=== PATIENT | female | born 1950 | race Caucasian/White ===

== ENCOUNTER 2018-04-20 19:30 | Inpatient (IN) | payer MEDICARE ==
[2018-04-20] MEDS ORDERED: SODIUM CHLORIDE 0.9% 1,000 ML IV STA ×2 (20:19→22:14)
--- NOTE | 2018-04-20 20:25 | ED ---
General Adult HPI - General Chief complaint: Syncope Stated complaint: syncope Time Seen by Provider: 04/20/18 20:00 Source: patient, RN notes reviewed Mode of arrival: EMS Limitations: no limitations - History of Present Illness Initial comments: 68-year-old female presents to the emergency department for a chief complaint of syncope occurring about one hour ago. Patient states she had upper back pain across her shoulders and started to feel diaphoretic so took a nitro. Patient states the pain was a 2 out of 10 at the time. Patient denies any chest pain or shortness of breath either now or when the back pain occurred. Patient states that when she took the nitro she began to feel lightheaded and lost consciousness. Patient does admit to a headache and hitting her head. Patient denies any pain anywhere else. Patient states she has nitro at home because 4 years she sometimes gets a "fizzy feeling" in her chest. Patient denies any past myocardial infarctions. Patient does state that her doctor told her she may have a "leaky valve" which is the extent of her cardiac history. Patient states she takes blood pressure medications but has no other medical history. Patient denies any urinary symptoms. Patient has no other complaints at this time including shortness of breath, chest pain, abdominal pain, nausea or vomiting, headache, or visual changes. - Related Data Home Medications Medication Instructions Recorded Confirmed Albuterol Inhaler [Ventolin 1 - 2 puff INHALATION Q6HR PRN 02/27/15 02/28/15 Inhaler] Hydrocodone/Acetaminophen 1 tab PO Q6H PRN 02/27/15 02/27/15 [Hydrocodone/Acetaminophen 7.5-300] Ibuprofen [Motrin] 200 mg PO QID 02/27/15 02/27/15 Levothyroxine Sodium [Synthroid] 125 mcg PO QAM 02/27/15 02/28/15 Olmesartan [Benicar] 20 mg PO PC-LUNCH 02/27/15 02/27/15 Allergies Allergy/AdvReac Type Severity Reaction Status Date / Time cephalexin monohydrate Allergy Rash/Hives Verified 04/20/18 23:01 [From [employer]] Review of Systems ROS Statement: Those systems with pertinent positive or pertinent negative responses have been documented in the HPI. ROS Other: All systems not noted in ROS Statement are negative. Past Medical History Past Medical History: Hypertension, Thyroid Disorder Additional Past Medical History / Comment(s): joint pain History of Any Multi-Drug Resistant Organisms: None Reported Past Surgical History: Back Surgery Past Psychological History: No Psychological Hx Reported Smoking Status: Never smoker Past Alcohol Use History: None Reported Past Drug Use History: None Reported General Exam Limitations: no limitations General appearance: alert, in no apparent distress Head exam: Present: atraumatic, normocephalic, normal inspection Eye exam: Present: normal appearance, PERRL, EOMI. Absent: scleral icterus, conjunctival injection, nystagmus, periorbital swelling ENT exam: Present: normal exam, normal oropharynx, mucous membranes moist, TM's normal bilaterally, normal external ear exam Neck exam: Present: normal inspection, full ROM. Absent: tenderness, meningismus, lymphadenopathy Respiratory exam: Present: normal lung sounds bilaterally. Absent: respiratory distress, wheezes, rales, rhonchi, stridor Cardiovascular Exam: Present: regular rate, normal rhythm, normal heart sounds. Absent: systolic murmur, diastolic murmur, rubs, gallop, clicks GI/Abdominal exam: Present: soft, normal bowel sounds. Absent: distended, tenderness, guarding, rebound, rigid Neurological exam: Present: alert, oriented X3, CN II-XII intact, other (GCS 15 , strength 5 out of 5 in upper extremities and lower extremities bilaterally, employment specialist strength 5 out of 5 bilaterally, negative arm drift) Psychiatric exam: Present: normal affect, normal mood Skin exam: Present: warm, dry, intact, normal color. Absent: rash, diaphoretic (Patient is not diaphoretic at this time) Course Vital Signs 04/20/18 04/20/18 04/20/18 19:35 20:38 21:10 Temperature 97.0 F L Pulse Rate 69 84 77 Respiratory 18 18 18 Rate Blood Pressure 83/42 79/34 82/38 O2 Sat by Pulse 90 L 100 100 Oximetry 04/20/18 04/20/18 04/20/18 22:06 22:28 23:26 Temperature Pulse Rate 71 79 75 Respiratory 18 18 18 Rate Blood Pressure 83/46 99/44 108/50 O2 Sat by Pulse 98 97 95 Oximetry Medical Decision Making - Medical Decision Making 68-year-old female presents to the emergency department for a chief complaint of syncope after taking a nitro for back pain across her shoulders bilaterally. The pain was a 2 out of 10. Patient has nitro for a 50 feeling in her heart. Patient has never had a myocardial infarction but states she may have a leaky valve. Patient did hit her head. CBC unremarkable. White count of 11.1. Hemoglobin 10.6. APTT 21. Sodium 134. No anion gap. Patient does have a creatinine of 1.5. Creatinine 2 years ago was 1.17. Cardiac panel negative. Troponin negative. Head CT shows no acute fracture or dislocation in the C- spine. No acute intracranial hemorrhage mass effect or midline shift. Chest x- ray demonstrates no acute process. Patient's blood pressure was consistently low in the emergency department. It did increase to 108/50 with 2 L of fluids and a gram of calcium. However with patient becoming syncopal and having a difficulty increasing blood pressure she will be admitted. - Lab Data Result diagrams: 04/20/18 19:42 04/20/18 19:42 Lab Results 04/20/18 04/20/18 04/20/18 Range/Units 19:42 19:42 19:42 WBC 11.1 H (3.8-10.6) k/uL RBC 3.73 L (3.80-5.40) m/uL Hgb 10.6 L (11.4-16.0) gm/dL Hct 33.7 L (34.0-46.0) % MCV 90.4 (80.0-100.0) fL MCH 28.5 (25.0-35.0) pg MCHC 31.5 (31.0-37.0) g/dL RDW 13.2 (11.5-15.5) % Plt Count 399 (150-450) k/uL Neutrophils % 72 % Lymphocytes % 19 % Monocytes % 7 % Eosinophils % 2 % Basophils % 0 % Neutrophils # 8.0 H (1.3-7.7) k/uL Lymphocytes # 2.1 (1.0-4.8) k/uL Monocytes # 0.7 (0-1.0) k/uL Eosinophils # 0.2 (0-0.7) k/uL Basophils # 0.0 (0-0.2) k/uL PT (9.0-12.0) sec INR (<1.2) APTT (22.0-30.0) sec Sodium 134 L (137-145) mmol/L Potassium 4.7 (3.5-5.1) mmol/L Chloride 103 (98-107) mmol/L Carbon Dioxide 20 L (22-30) mmol/L Anion Gap 11 mmol/L BUN 33 H (7-17) mg/dL Creatinine 1.50 H (0.52-1.04) mg/dL Est GFR (CKD-EPI)AfAm 40 (>60 ml/min/1.73 sqM) Est GFR (CKD-EPI)NonAf 35 (>60 ml/min/1.73 sqM) Glucose 127 H (74-99) mg/dL Calcium 8.7 (8.4-10.2) mg/dL Total Bilirubin 0.2 (0.2-1.3) mg/dL AST 28 (14-36) U/L ALT 25 (9-52) U/L Alkaline Phosphatase 92 (38-126) U/L Total Creatine Kinase 21 L (30-135) U/L CK-MB (CK-2) 0.5 (0.0-2.4) ng/mL CK-MB (CK-2) Rel Index 2.4 Troponin I <0.012 (0.000-0.034) ng/mL Total Protein 5.7 L (6.3-8.2) g/dL Albumin 3.5 (3.5-5.0) g/dL 04/20/18 Range/Units 19:42 WBC (3.8-10.6) k/uL RBC (3.80-5.40) m/uL Hgb (11.4-16.0) gm/dL Hct (34.0-46.0) % MCV (80.0-100.0) fL MCH (25.0-35.0) pg MCHC (31.0-37.0) g/dL RDW (11.5-15.5) % Plt Count (150-450) k/uL Neutrophils % % Lymphocytes % % Monocytes % % Eosinophils % % Basophils % % Neutrophils # (1.3-7.7) k/uL Lymphocytes # (1.0-4.8) k/uL Monocytes # (0-1.0) k/uL Eosinophils # (0-0.7) k/uL Basophils # (0-0.2) k/uL PT 10.0 (9.0-12.0) sec INR 1.0 (<1.2) APTT 21.1 L (22.0-30.0) sec Sodium (137-145) mmol/L Potassium (3.5-5.1) mmol/L Chloride (98-107) mmol/L Carbon Dioxide (22-30) mmol/L Anion Gap mmol/L BUN (7-17) mg/dL Creatinine (0.52-1.04) mg/dL Est GFR (CKD-EPI)AfAm (>60 ml/min/1.73 sqM) Est GFR (CKD-EPI)NonAf (>60 ml/min/1.73 sqM) Glucose (74-99) mg/dL Calcium (8.4-10.2) mg/dL Total Bilirubin (0.2-1.3) mg/dL AST (14-36) U/L ALT (9-52) U/L Alkaline Phosphatase (38-126) U/L Total Creatine Kinase (30-135) U/L CK-MB (CK-2) (0.0-2.4) ng/mL CK-MB (CK-2) Rel Index Troponin I (0.000-0.034) ng/mL Total Protein (6.3-8.2) g/dL Albumin (3.5-5.0) g/dL Disposition Clinical Impression: Syncope, Hypotension, Head injury Disposition: ADMITTED IP TO THIS HOSP Condition: Good Is patient prescribed a controlled substance at d/c from ED?: No Referrals: Charlie Lilly MD [Primary Care Provider] - 1-2 days Time of Disposition: 00:10
[2018-04-20 20:45] LABS: Basophils % (A) 0 %; Eosinophils # (A) 0.2 k/uL (0-0.7); Eosinophils % (A) 2 %; HCT 33.7 % (34.0-46.0); HGB 10.6 gm/dL (11.4-16.0); Lymphocytes # (A) 2.1 k/uL (1.0-4.8); Lymphocytes % (A) 19 %; MCH 28.5 pg (25.0-35.0); MCHC 31.5 g/dL (31.0-37.0); MCV 90.4 fL (80.0-100.0); Mean Platelet Volume 7.6; Monocytes # (A) 0.7 k/uL (0-1.0); Monocytes % (A) 7 %; Neutrophils % (A) 72 %; Platelet Count 399 k/uL (150-450); RBC 3.73 m/uL (3.80-5.40); RDW 13.2 % (11.5-15.5); WBC 11.1 k/uL (3.8-10.6)
[2018-04-20 20:55] LABS: Albumin 3.5 g/dL (3.5-5.0); Calcium 8.7 mg/dL (8.4-10.2); Potassium 4.7 mmol/L (3.5-5.1); Total Bilirubin 0.2 mg/dL (0.2-1.3); Total Protein 5.7 g/dL (6.3-8.2)
[2018-04-20 21:06] LABS: Creatine Kinase 21 U/L (30-135)
[2018-04-20 21:20] LABS: Creatine Kinase MB 0.5 ng/mL (0.0-2.4); Troponin I <0.012 ng/mL (0.000-0.034)
[2018-04-20 21:27] LABS: Partial Thromboplastin Time 21.1 sec (22.0-30.0)
--- NOTE | 2018-04-20 22:04 | XR ---
EXAMINATION: XR chest 2V DATE AND TIME: 04/20/2018 8:56 PM ORDERING PROVIDER: Uvaldo Brooks CLINICAL INDICATION: syncope TECHNIQUE: AP and lateral COMPARISON: None. DESCRIPTION: The lungs are clear. The pleural spaces are negative. The cardiac silhouette is mildly enlarged. The mediastinal and pleural silhouettes are unremarkable. The skeletal structures are intact without acute findings. The soft tissues are unremarkable. IMPRESSION: NO ACUTE PROCESS.
--- NOTE | 2018-04-20 22:09 | CT ---
EXAMINATION TYPE: CT brain fredi wright con DATE OF EXAM: 04/20/2018 COMPARISON: 04/15/2010 HISTORY: syncopal episode today, fall CT DLP: [id number] mGycm Automated exposure control for dose reduction was used. TECHNIQUE: CT scan of the head and cervical spine are performed without contrast. FINDINGS: There is no acute intracranial hemorrhage, mass effect, or midline shift identified. The ventricles and sulci are within normal limits in size. The globes are intact and the visualized sin uses are clear. Cervical spine is visualized in its entirety from C1 through upper thoracic levels and demonstrates s atisfactory alignment without evidence of acute fracture or dislocation. Prevertebral soft tissue ap pears within normal limits. The C1-C2 articulation is unremarkable. IMPRESSION: 1. There is no acute fracture or dislocation evident in the cervical spine. 2. No acute intracranial hemorrhage, mass effect, or midline shift is seen.
[2018-04-20] MEDS ORDERED: CALCIUM CHLORIDE 100 MG/ML 10 ML SYRINGE IVP STA (22:15)
[2018-04-21] MEDS ORDERED: NALOXONE 0.4 MG/ML 1 ML VIAL IV PRN (00:10)
[2018-04-21 02:22] LABS: Creatine Kinase <20 U/L (30-135)
[2018-04-21] MEDS: SODIUM CHLORIDE 0.9% 1,000 ML IV SCH ×2 (02:34→18:37)
[2018-04-21 02:35] LABS: Creatine Kinase MB 0.7 ng/mL (0.0-2.4); Troponin I <0.012 ng/mL (0.000-0.034)
[2018-04-21 02:54] LABS: Appearance,Urine Clear (Clear); Bilirubin,Urine Negative (Negative); Blood,Urine Negative (Negative); Color,Urine Light Yellow; Glucose,Urine (UA) Negative (Negative); Ketones,Urine Negative (Negative); Leukocyte Esterase,Urine Negative (Negative); Nitrite,Urine Negative (Negative); Protein,Urine Negative (Negative); Specific Gravity,Urine 1.007 (1.001-1.035); Urobilinogen,Urine <2.0 mg/dL (<2.0)
--- NOTE | 2018-04-21 08:14 | P.CRDCN ---
History of Present Illness Consult date: 04/21/18 Chief complaint: Syncopal episode History of present illness: This is a pleasant 68-year-old female patient who sees Dr. Wu in the office as an outpatient with a past medical history significant for hypertension and recently diagnosed as was valvular heart disease with unknown details at this point, presented to the hospital after she lost her consciousness at home. The patient was in her usual state of health until yesterday when she was standing in the bathroom and started experiencing discomfort in the back of her neck. She took nitroglycerin and subsequently she lost her consciousness where she was found laying on the floor by her son. She felt dizzy and lightheaded before that happened to her. No chest pain or chest discomfort and no shortness of breath. The patient was brought to the emergency room where she was found to be hypotensive with a systolic blood pressure in the 80s. Currently she has been maintaining normal blood pressure. The patient was receiving as an outpatient oral nitrate and also she was receiving Benicar. The EKG showed sinus rhythm without any significant ST or T-wave abnormalities. She was ruled out for acute coronary event. The chest x-ray did not show any acute abnormalities which she underwent a computed tomography scan of the head and neck and that did not reveal any acute abnormalities as well. I am in process of obtaining orthostatic blood pressure on the patient. She stated that she underwent a stress test and echocardiogram as an outpatient about 6 months ago and I will obtain a copy of those. The patient expressed the wishes that she would like to be discharged home. Past Medical History Past Medical History: Hypertension, Thyroid Disorder Additional Past Medical History / Comment(s): joint pain History of Any Multi-Drug Resistant Organisms: None Reported Past Surgical History: Back Surgery Past Psychological History: No Psychological Hx Reported Smoking Status: Never smoker Past Alcohol Use History: None Reported Past Drug Use History: None Reported Medications and Allergies Home Medications Medication Instructions Recorded Confirmed Type Albuterol Inhaler [Ventolin 1 - 2 puff INHALATION RT-Q6H PRN 02/27/15 04/21/18 History Inhaler] Levothyroxine Sodium [Synthroid] 125 mcg PO QAM 02/27/15 04/21/18 History Olmesartan [Benicar] 20 mg PO DAILY 02/27/15 04/21/18 History Celecoxib [CeleBREX] 200 mg PO BID-W/MEALS 04/21/18 04/21/18 History Cyclobenzaprine [Flexeril] 10 mg PO DAILY PRN 04/21/18 04/21/18 History Hydrocodone/Acetaminophen [[place] 1 tab PO DAILY PRN 04/21/18 04/21/18 History 5-325] Isosorbide Mononitrate ER [Imdur] 30 mg PO DAILY 04/21/18 04/21/18 History Nitroglycerin Sl Tabs [Nitrostat] 0.4 mg SUBLINGUAL Q5M PRN 04/21/18 04/21/18 History Nitroglycerin [Nitroglycerin 1 spray TRANSLINGU Q5M PRN 04/21/18 04/21/18 History 400MCG [place]] Omeprazole 20 mg PO DAILY 04/21/18 04/21/18 History Zantac Unknown Dose 0.5 tab PO DAILY PRN 04/21/18 04/21/18 History Allergies Allergy/AdvReac Type Severity Reaction Status Date / Time cephalexin monohydrate Allergy Rash/Hives Verified 04/21/18 07:36 [From [employer]] Physical Exam Vitals: Vital Signs Temp Pulse Resp BP Pulse Ox 04/21/18 07:20 87 16 117/55 97 04/21/18 02:34 77 16 117/56 94 L 04/20/18 23:26 75 18 108/50 95 04/20/18 22:28 79 18 99/44 97 04/20/18 22:06 71 18 83/46 98 04/20/18 21:10 77 18 82/38 100 04/20/18 20:38 84 18 79/34 100 04/20/18 19:35 97.0 F L 69 18 83/42 90 L Intake and Output 04/20/18 04/21/18 04/21/18 22:59 06:59 14:59 Other: Weight 102.965 kg - Constitutional General appearance: no acute distress - Respiratory Respiratory: bilateral: CTA - Cardiovascular Rhythm: regular Heart sounds: normal: S1, S2 Abnormal Heart Sounds: systolic murmur Results 04/20/18 19:42 04/20/18 19:42 Cardiac Enzymes 04/20/18 04/20/18 04/21/18 Range/Units 19:42 19:42 01:33 AST 28 (14-36) U/L CK-MB (CK-2) 0.5 0.7 (0.0-2.4) ng/mL Troponin I <0.012 <0.012 (0.000-0.034) ng/mL Coagulation 04/20/18 Range/Units 19:42 PT 10.0 (9.0-12.0) sec APTT 21.1 L (22.0-30.0) sec CBC 04/20/18 Range/Units 19:42 WBC 11.1 H (3.8-10.6) k/uL RBC 3.73 L (3.80-5.40) m/uL Hgb 10.6 L (11.4-16.0) gm/dL Hct 33.7 L (34.0-46.0) % Plt Count 399 (150-450) k/uL Comprehensive Metabolic Panel 04/20/18 Range/Units 19:42 Sodium 134 L (137-145) mmol/L Potassium 4.7 (3.5-5.1) mmol/L Chloride 103 (98-107) mmol/L Carbon Dioxide 20 L (22-30) mmol/L BUN 33 H (7-17) mg/dL Creatinine 1.50 H (0.52-1.04) mg/dL Glucose 127 H (74-99) mg/dL Calcium 8.7 (8.4-10.2) mg/dL AST 28 (14-36) U/L ALT 25 (9-52) U/L Alkaline Phosphatase 92 (38-126) U/L Total Protein 5.7 L (6.3-8.2) g/dL Albumin 3.5 (3.5-5.0) g/dL Current Medications Generic Name Dose Route Start Last Admin Trade Name Freq PRN Reason Stop Dose Admin Sodium Chloride 1,000 mls @ 75 mls/hr 04/21/18 00:15 04/21/18 02:34 Saline 0.9% IV 75 mls/hr .[id number] NAREN Administration Naloxone HCl 0.2 mg 04/21/18 00:10 Narcan IV Q2M PRN Opioid Reversal Intake and Output 04/20/18 04/21/18 04/21/18 22:59 06:59 14:59 Other: Weight 102.965 kg 04/20/18 19:42 04/20/18 19:42 Assessment and Plan Assessment: Assessment #1 syncopal episode likely related to orthostatic hypotension with a differential diagnosis of vasovagal syncope #2 hypotension which has improved Plan #1 the patient was ruled out for acute coronary event #2 I am in process of obtaining orthostatic hypotension #3 obtain her previous medical records from the office #4 probably discharge home later on today.
[2018-04-21 09:51] LABS: Creatine Kinase 24 U/L (30-135)
[2018-04-21 10:03] LABS: Creatine Kinase MB 0.8 ng/mL (0.0-2.4); Troponin I <0.012 ng/mL (0.000-0.034)
[2018-04-21] MEDS ORDERED: NITROGLYCERIN SL TABS 0.4 MG TAB SUBLINGUAL PRN (12:10)
[2018-04-21] MEDS ORDERED: HYDROcodone/APAP 5-325MG 1 EACH TAB PO PRN (12:10)
[2018-04-21] MEDS ORDERED: FAMOTIDINE 20 MG TAB PO PRN (12:10)
[2018-04-21] MEDS ORDERED: CYCLOBENZAPRINE 10 MG TAB PO PRN (12:10)
[2018-04-21] MEDS ORDERED: NON-FORMULARY DRUG (Olmesartan 20 MG) PO SCH (12:15)
[2018-04-21] MEDS: ISOSORBIDE MONONITRATE ER 30 MG TAB.ER.24H PO SCH (12:41)
[2018-04-21] MEDS: PANTOPRAZOLE 40 MG TABLET PO SCH (12:41)
[2018-04-21] MEDS: LEVOTHYROXINE 125 MCG TAB PO SCH (12:41)
[2018-04-21] MEDS: LACTATED RINGERS 1,000 ML IV SCH ×2 (14:05→23:17)
[2018-04-21] MEDS: SODIUM BICARBONATE TAB 650 MG TAB PO SCH ×2 (19:20→23:17)
[2018-04-21] MEDS: ENOXAPARIN 40 MG/0.4 ML SYRINGE SQ SCH (19:20)
--- NOTE | 2018-04-21 19:25 | HP ---
HISTORY AND PHYSICAL DATE OF ADMISSION: 04/21/2018. DATE OF SERVICE: 04/21/2018 PRESENTING COMPLAINT: Passed out. HISTORY OF PRESENTING COMPLAINT: This is a very pleasant 68-year-old patient of Dr. Lilly. The patient's chronic stable medical conditions include asthma, GERD, hypertension, primary osteoarthritis, hypothyroid, chronic low back pain. Also has bilateral varicose veins which are stable. The patient has been feeling a bit tired. The patient had an episode where she felt a bit sweaty, some discomfort in the back. She decided to take nitroglycerin spray and then she passed out. There was no precordial pain, no palpitation. There was no tongue biting or incontinence. No focal weakness. The patient when presented, the blood pressure was 83/42 and a pulse of 69, pulse ox 98% on room air. The patient's troponin was negative. The patient has been feeling very tired and run down. The patient's BUN and creatinine was elevated at 33 and 1.5. REVIEW OF SYSTEMS: CONSTITUTIONAL: Tired. HEENT: None. RESPIRATORY: None. CARDIOVASCULAR: None. GASTROINTESTINAL: None. GENITOURINARY: None. MUSCULOSKELETAL: Some low back pain. DERMATOLOGICAL: None. HEMATOLOGIC: None. LYMPHATIC: None. PSYCHIATRY: None. NEUROLOGICAL: Nil focal. PAST MEDICAL HISTORY: Asthma GERD, hypertension, osteoarthritis, hypothyroid, chronic low back pain, spondylosis, bilateral varicose veins. PAST SURGICAL HISTORY: Tonsillectomy, back surgery x2, bilateral cataract with lens implant. SOCIAL HISTORY: Lives with her . No smoking. No alcohol. FAMILY HISTORY: Myocardial infarction. HOME MEDICATIONS: 1. Nitroglycerin 1 spray q.5 p.r.n. 2. [place] 5 one tablet p.o. daily p.r.n. 3. Zantac. 4. Omeprazole 20 mg p.o. daily. 5. Benicar 20 mg p.o. daily. 6. Nitrostat 0.4 sublingual q.5 p.r.n. 7. Synthroid 125 mcg p.o. daily. 8. Imdur ER 30 mg a day. 9. Flexeril 10 mg p.o. daily p.r.n. 10.Celebrex 200 mg p.o. b.i.d. 11.Ventolin 1-2 puffs every 6 hours p.r.n. ALLERGIES: KEFLEX. EXAMINATION: VITAL SIGNS: On presentation, temperature 97.9, pulse 69, respirations 18, blood pressure 83/42, pulse ox 98% on room air. GENERAL APPEARANCE: Well-built, BMI 40.2, lying in bed, tired-appearing. EYES: Pupils equal. Conjunctivae normal. HEENT: External appearance of nose and ears normal. Oral cavity normal. NECK: JVD not raised. Mass not palpable. RESPIRATORY: Effort normal. Lungs are clear. CARDIOVASCULAR: First and second sounds normal. No edema. ABDOMEN: Soft, nontender. Liver and spleen not palpable. LYMPHATIC: No lymph node palpable in neck or axillae. PSYCHIATRY: Alert and oriented x3. Mood and affect normal. NEUROLOGICAL: Pupils equal. Cranial nerves grossly intact. Power and sensation grossly intact. INVESTIGATIONS: White count 11.1, hemoglobin 10.6. Potassium 4.9, BUN 33, creatinine 1.50. Troponin x3 negative. UA negative. EKG shows sinus rhythm. EKG tracing interpreted by me shows sinus rhythm. Chest x-ray AP film: Poor expiration. ASSESSMENT: 1. The patient had an episode of passing out associated with hypotension, probably from hypotension from volume loss from in setting of renal failure. The patient is put on Benicar and Celebrex. It could be a prerenal component. 2. Hypotension in a patient on antihypertensive. 3. Intermittent asthma, controlled. 4. Gastroesophageal reflux disease. 5. Primary osteoarthritis. 6. Hypothyroid. 7. Bilateral varicose veins; chronic, stable. PLAN: Will send off a renal ultrasound. I will start the patient's Benicar and Celebrex, start the patient on IV fluids. Oral bicarb will be also added. Repeat electrolytes in the morning. Care was discussed with the patient. Lovenox for DVT prophylaxis. Cardiology was consulted because of syncope. MMODL / IJN: [id number] /
--- NOTE | 2018-04-21 19:37 | US ---
EXAMINATION TYPE: US renals and bladder DATE OF EXAM: 04/21/2018 COMPARISON: NONE CLINICAL HISTORY: renal failure. Renal failure exam limitations due to body habitus. EXAM MEASUREMENTS: Right Kidney: 10.9 x 4.6 x 4.5 cm Left Kidney: 9.7 x 4.1 x 3.7 cm Exam limited due to body habitus. Right Kidney: No hydronephrosis or masses seen cortical thinning. Left Kidney: No hydronephrosis or masses seen cortical thinning. Bladder: Anechoic Bilateral Jets seen: Yes IMPRESSION: No renal mass or obstruction. Mild renal cortical atrophy.
[2018-04-21 23:08] VITALS: RESP 16
[2018-04-22] MEDS: LEVOTHYROXINE 125 MCG TAB PO SCH (06:03)
[2018-04-22] MEDS: PANTOPRAZOLE 40 MG TABLET PO SCH (07:45)
[2018-04-22] MEDS: ENOXAPARIN 40 MG/0.4 ML SYRINGE SQ SCH (07:45)
[2018-04-22] MEDS: ISOSORBIDE MONONITRATE ER 30 MG TAB.ER.24H PO SCH (07:45)
[2018-04-22] MEDS: LACTATED RINGERS 1,000 ML IV SCH (07:46)
[2018-04-22] MEDS: SODIUM BICARBONATE TAB 650 MG TAB PO SCH ×2 (07:47→15:19)
[2018-04-22 07:57] LABS: Calcium 9.1 mg/dL (8.4-10.2); Potassium 4.7 mmol/L (3.5-5.1)
--- NOTE | 2018-04-22 11:07 | P.PN ---
Subjective Progress Note Date: 04/22/18 Principal diagnosis: syncope This is a pleasant 68-year-old female patient who sees Dr. Wu in the office as an outpatient with past medical history significant for hypertension and recently diagnosed as was valvular heart disease with unknown details at this point, presented to the hospital after she lost her consciousness at home. The patient was in her usual state of health until yesterday when she was standing in the bathroom and started experiencing discomfort in the back of her neck. She took nitroglycerin and subsequently she lost her consciousness where she was found laying on the floor by her son. She felt dizzy and lightheaded before that happened to her. No chest pain or chest discomfort and no shortness of breath. The patient was brought to the emergency room where she was found to be hypotensive with a systolic blood pressure in the 80s. Currently she has been maintaining normal blood pressure. The patient was receiving as an outpatient oral nitrate and also she was receiving Benicar. The EKG showed sinus rhythm without any significant ST or T-wave abnormalities. She was ruled out for acute coronary event. The chest x-ray did not show any acute abnormalities which she underwent a computed tomography scan of the head and neck and that did not reveal any acute abnormalities as well. Objective - Vital Signs Vital signs: Vital Signs Temp 98.0 F 04/22/18 05:00 Pulse 68 04/22/18 05:00 Resp 16 04/22/18 05:00 BP 137/64 04/22/18 05:00 Pulse Ox 97 04/22/18 05:00 Intake & Output 04/21/18 04/22/18 04/22/18 18:59 06:59 18:59 Intake Total 1760 Balance 1760 Weight 102.965 kg Intake: Intake, IV Titration 1100 Amount Lactated Ringers 1,000 ml 1100 @ 100 mls/hr IV .Q10H NAREN Rx#:[id number] Oral 660 Other: Voiding Method Toilet Toilet # Voids 1 - Constitutional General appearance: Present: no acute distress - Respiratory Respiratory: bilateral: CTA - Cardiovascular Rhythm: regular Heart sounds: normal: S1, S2 - Labs CBC & Chem 7: 04/20/18 19:42 04/22/18 06:53 Labs: Abnormal Lab Results - Last 24 Hours (Table) 04/22/18 Range/Units 06:53 Chloride 110 H (98-107) mmol/L Assessment and Plan Assessment: Assessment #1 syncopal episode likely related to orthostatic hypotension with a differential diagnosis of vasovagal syncope #2 hypotension which has improved Plan #1 the patient was ruled out for acute coronary event #2 orthostatic blood pressure was performed and came in to be unremarkable #3 the patient underwent a stress test about a year ago and that was unremarkable as well #4 the primary care team thinks that her syncope is likely related to dehydration and currently she is receiving IV fluid #5 if the patient continues to be asymptomatic from a cardiac O standpoint of view, she probably can be discharged home and have a stenosis as an outpatient
[2018-04-22 15:26] VITALS: BP 117/56; PULSE 80; TEMP 97.6
--- NOTE | 2018-04-22 23:17 | DS ---
DISCHARGE SUMMARY DATE OF ADMISSION: 04/21/2018. DATE OF DISCHARGE: 04/22/2018 FINAL DIAGNOSES: 1. Acute renal failure, prerenal and possibly interstitial nephritis from medications, including Celebrex and Cozaar. 2. Syncope due to hypotension. 3. Hypotension due to volume depletion. 4. Intermittent asthma, controlled. 5. Gastroesophageal reflux disease. 6. Primary osteoarthritis. 7. Hypothyroid. 8. Bilateral varicose veins, chronic. HOSPITAL COURSE: This patient presented with an episode of passing out. The patient was found to be hypotensive in the 80s when she arrived. The patient's BUN/creatinine was 33/1.50. I discontinued patient's Celebrex and Cozaar. By the time of discharge, BUN and creatinine had come down to 15/0.91. Renal ultrasound showed minimal cortical thinning. The patient was seen by Dr. Bhardwaj from Cardiology. No further intervention at the present time. Today patient is up and about. Care was discussed in detail. I also discussed with Dr. Bhardwaj this morning and with the patient. Questions were answered. I did explain to the patient I am cutting back the dose of Celebrex, stopping the Cozaar and she needs to have electrolytes checked as an outpatient and keep an eye on her blood pressure. EXAMINATION: Temperature 97.6, pulse 80, respirations 16, blood pressure 111/56, pulse ox 96% on room air. Blood pressure 107/56, pulse ox 96% on room air. LUNGS: Clear. CARDIOVASCULAR: First and second sounds normal. DISCHARGE MEDICATIONS: 1. Albuterol 1-2 puffs every 6 hours p.r.n. 2. Synthroid 125 mcg p.o. daily. 3. Flexeril 10 mg p.o. daily p.r.n. 4. Wallis 5 one tablet p.o. daily p.r.n. 5. Imdur ER 30 mg a day. 6. Nitrostat 0.4 sublingual q.5 p.r.n. 7. Nitroglycerin spray. 8. Omeprazole 20 mg p.o. daily. 9. Zantac as before. 10.Celebrex 100 mg p.o. b.i.d., new dose. 11.Discontinued Benicar. FOLLOWUP: Follow up with Dr. Lilly on 04/30/2018. Follow up with Cardiology. Patient to have a BMP checked in a week's time. DISCUSSION AND DISCHARGE PLANNING: More than 35 minutes. CONSULTATIONS: To Dr. Bhardwaj. JUSTUS / LELEN: [id number] /
== END 2018-04-22 18:00 | disposition home or self-care (01) | DRG 684 ==
LOC: EC 19:30 → 3OBS 04-21 00:33 → OBSVTOIN 04-21 00:33 → 6SEL 04-21 11:36 → 5MS5E 04-21 15:38
PROVIDERS: ADMIT Hospitalist; ATTEND Hospitalist
DX: N17.9 Acute kidney failure, unspecified (principal); N12 Tubulo-interstitial nephritis, not specified as acute or chronic; S09.90XA Unspecified injury of head, initial encounter; E86.9 Volume depletion, unspecified; I95.1 Orthostatic hypotension; T39.395A Adverse effect of other nonsteroidal anti-inflammatory drugs [NSAID], initial encounter; T46.5X5A Adverse effect of other antihypertensive drugs, initial encounter; I10 Essential (primary) hypertension; J45.20 Mild intermittent asthma, uncomplicated; K21.9 Gastro-esophageal reflux disease without esophagitis; M19.91 Primary osteoarthritis, unspecified site; E03.9 Hypothyroidism, unspecified; I83.93 Asymptomatic varicose veins of bilateral lower extremities; G89.29 Other chronic pain; M54.5 Low back pain; Z79.1 Long term (current) use of non-steroidal anti-inflammatories (NSAID); Z79.890 Hormone replacement therapy; Z79.899 Other long term (current) drug therapy; Z98.42 Cataract extraction status, left eye; Z98.41 Cataract extraction status, right eye; Z96.1 Presence of intraocular lens; Z88.1 Allergy status to other antibiotic agents; M47.9 Spondylosis, unspecified; Z82.49 Family history of ischemic heart disease and other diseases of the circulatory system
CPT/HCPCS: 36415; 70450; 71046; 72125; 76770; 80048; 80053; 81003; 82550; 82553; 84484; 85025; 85610; 85730; 93005; 96361; 96374; 99285

== ENCOUNTER → 2019-01-15 | Outpatient (CLI) | payer MEDICARE ==
--- NOTE | 2019-01-17 07:48 | PE ---
EXAMINATION TYPE: PET CT fusion skull to thigh DATE OF EXAM: 01/15/2019 COMPARISON: Outside chest CT December 16, 2018. HISTORY: Abnormal CT. Solitary pulmonary nodule. TECHNIQUE: Following the intravenous administration of 14.04 mCi of F-18 FDG, whole body images are performed from the skull base to the midthigh. Images are reviewed on the computer in the coronal, a xial, and sagittal planes. Reconstructed rotating images are created on independent workstation and reviewed on the computer. A noncontrast CT is performed in conjunction with the PET scan. SCAN: Initial Scan FINDINGS: SKULL BASE AND NECK: No areas of suspicious hypermetabolic uptake. CHEST, MEDIASTINUM, AND HILAR REGION: There is persistent focal groundglass opacity or Groundglass no dule superior right lower lobe measuring 1.3 x 1.1 cm axial image 89 that is ametabolic. No areas of abnormal hypermetabolic uptake in the thorax are present. ABDOMEN AND PELVIS: No areas of abnormal hypermetabolic uptake are identified. OSSEOUS STRUCTURES: No areas of abnormal hypermetabolic uptake. OTHER CT: Air-fluid level left maxillary sinus is present. Correlate for acute sinusitis. Enlarged main pulmonary artery measuring 3.2 cm the bifurcation image 86, CT findings suggesting unde rlying pulmonary artery hypertension, correlate clinically. Some cortical thinning in both kidneys, left greater than right is present products of chronic medica l renal disease. Diverticula throughout the left and sigmoid colon are redemonstrated. Surgical change lower lumbar spine is seen. IMPRESSION: No suspicious hypermetabolic uptake in the 1.3 cm superior right lower lobe groundglass n odule or nodular consolidation. Slow-growing neoplasm such as bronchioloalveolar carcinoma is not ent irely excluded. Advise contrast enhanced CT follow-up in 6 months time to reassess.
== END | disposition home or self-care (01) ==
LOC: RADPETMAIN 12:24
PROVIDERS: ATTEND Family Medicine
DX: R91.8 Other nonspecific abnormal finding of lung field (principal)
CPT/HCPCS: 78815; A9552

== ENCOUNTER → 2019-07-27 | Outpatient (CLI) | payer MEDICARE ==
--- NOTE | 2019-07-27 13:51 | CT ---
EXAMINATION TYPE: CT chest wo con DATE OF EXAM: 07/27/2019 COMPARISON: CT chest 12/16/2018, nuclear medicine PET/CT 01/15/2019 HISTORY: Follow up lung nodule CT DLP: 561.8 mGycm. Automated Exposure Control for Dose Reduction was Utilized. TECHNIQUE: CT scan of the thorax is performed without IV contrast. FINDINGS: Active contrast could compromise sensitivity. There is a small hiatal hernia present. LUNGS: The lungs are grossly clear, there is no change in the groundglass nodule present in the super ior segment of the right lower lobe. There is no pleural effusion or pneumothorax seen. The trache obronchial tree is patent. MEDIASTINUM: Lack of IV contrast is noted to limit evaluation for mediastinal and especially hilar ad enopathy. There are no definitive greater than 1 cm hilar or mediastinal lymph nodes. No cardiomega ly or pericardial effusion is seen. OTHER: Pneumobilia is present which is developed in the interval, calcification is present in what ma y be a contracted gallbladder or possibly cystic duct remnant with a focus of air as on prior immedia tely adjacent. IMPRESSION: Stable right lower lobe groundglass nodule. Interval development of pneumobilia, correlat e for any history of instrumentation. Noncontrast exam.
== END | disposition home or self-care (01) ==
LOC: RADCTMAIN 13:13
PROVIDERS: ATTEND Internal Medicine Critical Care Medicine
DX: R91.1 Solitary pulmonary nodule (principal); Z88.2 Allergy status to sulfonamides; Z88.8 Allergy status to other drugs, medicaments and biological substances; Z88.5 Allergy status to narcotic agent
CPT/HCPCS: 71250

== ENCOUNTER → 2020-07-24 | Outpatient (CLI) | payer MEDICARE ==
--- NOTE | 2020-07-24 12:50 | CT ---
EXAMINATION TYPE: CT chest wo con DATE OF EXAM: 07/24/2020 COMPARISON: 07/27/2019 HISTORY: 70-year-old female R91.1 Lung nodule TECHNIQUE: Contiguous axial scanning of the chest without IV contrast. Coronal and sagittal reconstru ctions performed. CT DLP: 521.70 mGycm Automated exposure control for dose reduction was used. FINDINGS: Heart borderline in size without pericardial effusion. Aorta normal caliber with conventional arch vessel branching anatomy. No thoracic lymphadenopathy by CT size criteria. 1.6 cm groundglass opacity posterior right midlung, unchanged. Strandy areas of scarring or atelectasis at the lung bases. No consolidation or pleural effusion. Tiny hiatal hernia. Visualized upper abdomen shows mild diverticular change of the splenic flexure of the colon. Gallbladder surgically absent. Bones: Accentuated mid thoracic process. DISH within the mid and lower thoracic spine. IMPRESSION: STABLE 1.6 CM GROUNDGLASS OPACITY POSTERIOR RIGHT MIDLUNG. RECOMMEND ONGOING ANNUAL SURVEILLANCE. IF THIS REPRESENTS AN AREA OF ADENOMATOUS HYPERPLASIA, IT COULD SERVE A PRECURSOR TO LUNG CANCER IN T HE FUTURE.
== END | disposition home or self-care (01) ==
LOC: RADCTMAIN 11:07
PROVIDERS: ATTEND Internal Medicine Critical Care Medicine
DX: R91.8 Other nonspecific abnormal finding of lung field (principal)
CPT/HCPCS: 71250

== ENCOUNTER → 2020-08-23 | Outpatient (CLI) | payer MEDICARE ==
--- NOTE | 2020-08-27 11:14 | MM ---
Reason for exam: screening (asymptomatic). Last mammogram was performed 11 years and 11 months ago. History: Patient is postmenopausal and had first child at age 30. Benign excisional biopsy of the right breast. Took estrogen for 6 years beginning at age 51. Took progesterone for 6 years beginning at age 51. Physical Findings: A clinical breast exam by your physician is recommended on an annual basis and results should be correlated with mammographic findings. MG 3D Screening Mammo W/Cad Bilateral CC and MLO view(s) were taken. Prior study comparison: September 21, 2008, bilateral digital screening mammogram. September 02, 2007, bilateral screening mammogram w/CAD. There are scattered fibroglandular densities. No significant changes when compared with prior studies. ASSESSMENT: Benign, BI-RAD 2 RECOMMENDATION: Routine screening mammogram of both breasts in 1 year.
== END | disposition home or self-care (01) ==
LOC: RADMAMWWP 10:13
PROVIDERS: ATTEND Family Medicine
DX: Z12.31 Encounter for screening mammogram for malignant neoplasm of breast (principal)
CPT/HCPCS: 77063; 77067

== ENCOUNTER → 2020-09-06 | Outpatient (CLI) | payer MEDICARE ==
--- NOTE | 2020-09-10 09:04 | BD ---
EXAMINATION TYPE: Axial Bone Density DATE OF EXAM: 09/06/2020 COMPARISON: 03/22/2004 report. CLINICAL HISTORY: Postmenopausal female. Height: 60 IN Weight: 229 LBS FRAX RISK QUESTIONS: History of Fracture in Adulthood: FOOT FX AGE 58 RISK FACTORS HISTORY OF: Active: YES Postmenopausal woman: AGE 48 Take estrogen and/or progesterone medications: NOT NOW TOOK FOR 1 YEAR MEDICATIONS: Thyroid Medications: YES Which medication: Synthroid How Lon YEARS Additional Medications: SYNTHROID, PAIN MEDS, BLOOD PRESSURE MEDS,KIDNEY MEDS EXAM MEASUREMENTS: Bone mineral densitometry was performed using the [employer] System. L-SPINE SURGERY AGE 44 Bone mineral density about the R hip (g/cm2): 0.776 Bone mineral density about the L hip (g/cm2): 0.873 T Score values are as follows: -----R Neck: -1.9 -----L Neck: -1.2 -----R Total: -1.3 -----L Total: -1.0 Bone mineral density has: Decreased -19.8% since study of: 03/22/2004 Bone mineral density about the L Wrist (g/cm2): 0.528 T Score values are as follows: -----Dist. R+U: -3.0 -----Prox. R+U: -1.0 -----Radius total: -2.4 Bone mineral density BASELINE IMPRESSION: Osteopenia (T Score between -2.5 and -1). There is slightly increased risk of fracture and the patient may be considered for treatment. Re-Screen 2-5 years. NOTE: T-SCORE=SD OF THE YOUNG ADULT MEAN.
== END | disposition home or self-care (01) ==
LOC: RADBDWWP 10:45
PROVIDERS: ATTEND Family Medicine
DX: M85.80 Other specified disorders of bone density and structure, unspecified site (principal); Z78.0 Asymptomatic menopausal state
CPT/HCPCS: 77080

== ENCOUNTER → 2021-06-26 | Outpatient (CLI) | payer MEDICARE ==
--- NOTE | 2021-06-26 13:26 | CT ---
EXAMINATION TYPE: CT chest wo con DATE OF EXAM: 06/26/2021 COMPARISON: CT chest 07/24/2020 HISTORY: lung nodule CT DLP: 689.9 mGycm. Automated Exposure Control for Dose Reduction was Utilized. TECHNIQUE: CT scan of the thorax is performed without IV contrast. FINDINGS: Lack of intravenous contrast could compromise sensitivity. LUNGS: The lungs are stable, there is no change in the groundglass nodule seen in the superior segmen t right lower lobe. There is no pleural effusion or pneumothorax seen. The tracheobronchial tree i s patent. MEDIASTINUM: Lack of IV contrast is noted to limit evaluation for mediastinal and especially hilar ad enopathy. There are no definitive greater than 1 cm hilar or mediastinal lymph nodes. No cardiomega ly or pericardial effusion is seen. OTHER: Diverticular changes associated with the colon. Aorta shows normal caliber.. IMPRESSION: Stable nodule
== END | disposition home or self-care (01) ==
LOC: RADCTMAIN 11:58
PROVIDERS: ATTEND Internal Medicine Critical Care Medicine
DX: R91.1 Solitary pulmonary nodule (principal)
CPT/HCPCS: 71250

== ENCOUNTER → 2022-03-26 | Outpatient (CLI) | payer MEDICARE ==
--- NOTE | 2022-03-26 10:29 | US ---
EXAMINATION TYPE: US kidneys/renal and bladder DATE OF EXAM: 03/26/2022 COMPARISON: US 2018 CLINICAL HISTORY: N18.31 STAGE 3 KIDNEY DISEASE,N25.81HYPERPARATHYRO. Stage 3 CKD. EXAM MEASUREMENTS: Right Kidney: 11.3 x 5.8 x 4.3 cm Left Kidney: 10.3 x 5.5 x 4.5 cm Right Kidney: Cortex appears thin. Left Kidney: Cortex appears thin. Prominent pyramids. Bladder: Limited, not fully distended. Appears anechoic. Bilateral Jets seen: Limited, jet is seen, unable to determine if right or left with certainty. Cortical thinning bilaterally is present. Bladder not greatly distended. Bilateral distal ureter jets not seen. IMPRESSION: Evidence of chronic medical renal disease. No hydronephrosis seen bilaterally.
--- NOTE | 2022-03-26 15:17 | NM ---
EXAMINATION TYPE: NM parathyroid w/spect DATE OF EXAM: 03/26/2022 COMPARISON: NONE HISTORY: N25.81 hyperparathyroidism TECHNIQUE: Following administration of 25.9 mCi Tc99m Sestamibi. Anterior projection images of the neck and ches t were obtained 10 minutes and 3 hours post injection. SPECT images of the neck and chest were obtai mary and reconstructed in three axes. FINDINGS: Thyroid tracer washout: Delayed images demonstrate near-complete tracer washout from the thyroid. Parathyroid uptake: None. The two-hour delayed images do not demonstrate any focal abnormal persisten t uptake in the region of the parathyroid glands to suggest parathyroid adenoma. Normal uptake: There is physiological tracer uptake in the myocardium, liver, salivary glands, and th yroid gland. IMPRESSION: Normal parathyroid imaging study. No evidence for mediastinal uptake to suggest mediastinal parathyro id adenoma
== END | disposition home or self-care (01) ==
LOC: RADUSWWP 09:37
PROVIDERS: ATTEND Internal Medicine Nephrology
DX: N25.81 Secondary hyperparathyroidism of renal origin (principal); N18.31 Chronic kidney disease, stage 3a
CPT/HCPCS: 76770; 78071; A9500

== ENCOUNTER 2022-12-18 15:01 | Emergency (ER) | payer MEDICARE ==
[2022-12-18 15:06] VITALS: RESP 16
--- NOTE | 2022-12-18 15:12 | ED ---
Neuro HPI - General Chief Complaint: Neuro Symptoms/Deficit Stated Complaint: Stroke Time Seen by Provider: 12/18/22 15:03 Source: patient Mode of arrival: EMS - History of Present Illness Is the patient presenting with stroke symptoms?: Yes Initial Comments: 72-year-old female with past medical history of asthma, hypertension who presents to the emergency department altered. EMS states that the patient was found at the grocery store in her car. She was not acting right. They noted that she had hemiparesis of her left side. No numbness the patient's last known well. Patient arrives and she is able to answer some questions. She has significant dysarthria. She reports that she went to the grocery store around 1:30. Cannot delineate any further when the patient began having symptoms. She does have complete paralysis of her left upper and left lower extremity. There is also weakness of the right lower extremity. She has no previous history of stroke and states she is not on a blood thinner. Remainder of HPI is limited - Related Data Home Medications: Home Medications Medication Instructions Recorded Confirmed Albuterol Inhaler [Ventolin Hfa 1 - 2 puff INHALATION RT-Q6H PRN 02/27/15 12/18/22 Inhaler] Levothyroxine Sodium [Synthroid] 125 mcg PO DAILY 02/27/15 12/18/22 Isosorbide Mononitrate ER [Imdur] 30 mg PO DAILY 04/21/18 12/18/22 Nitroglycerin [Nitroglycerin 1 spr TRANSLINGU Q5M PRN 04/21/18 12/18/22 400MCG [place]] EPINEPHrine (Auto Inject) [Epipen] 0.3 mg IM ONCE PRN 12/18/22 12/18/22 Ergocalciferol [Vitamin D2 (1250 1,250 mcg PO Q14D 12/18/22 12/18/22 Mcg = 65700 Iu)] HYDROcodone/APAP 7.5-325MG [[place] 1 tab PO TID PRN 12/18/22 12/18/22 7.5-325] Magnesium Oxide [Mag-Ox] 400 mg PO Q2D 12/18/22 12/18/22 Olmesartan [Benicar] 5 mg PO DAILY 12/18/22 12/18/22 calcitrioL [Calcitriol] 0.25 mcg PO MOFR 12/18/22 12/18/22 Allergies/Adverse Reactions: Allergies Allergy/AdvReac Type Severity Reaction Status Date / Time cephalexin monohydrate Allergy Rash/Hives Verified 12/18/22 15:16 [From Keflex] levofloxacin [From Levaquin] Allergy Unknown Verified 12/18/22 15:16 Review of Systems ROS Statement: Those systems with pertinent positive or pertinent negative responses have been documented in the HPI. ROS Other: All systems not noted in ROS Statement are negative. General Exam Limitations: altered mental status, physical limitation General appearance: lethargic Eye exam: Present: other (4 mm bilaterally and reactive) ENT exam: Present: normal exam, mucous membranes moist Neck exam: Present: normal inspection. Absent: tenderness, meningismus, lymphadenopathy Respiratory exam: Present: normal lung sounds bilaterally. Absent: respiratory distress, wheezes, rales, rhonchi, stridor Cardiovascular Exam: Present: regular rate, normal rhythm, normal heart sounds. Absent: systolic murmur, diastolic murmur, rubs, gallop, clicks Neurological exam: Present: other (Patient is alert and oriented 3. She has significant dysarthria. Complete caridad-neglect of her left side. Paralyzed left upper and lower extremity. Has significant weakness right lower extremity. Left-sided facial droop) Psychiatric exam: Present: flat affect Skin exam: Present: warm, dry, intact, normal color. Absent: rash Stroke MDM - Lab Data Result diagrams: 12/18/22 15:17 12/18/22 15:17 Lab Results 12/18/22 12/18/22 12/18/22 Range/Units 15:17 15:17 15:17 WBC 8.4 (3.8-10.6) k/uL RBC 3.96 (3.80-5.40) m/uL Hgb 12.0 (11.4-16.0) gm/dL Hct 36.3 (34.0-46.0) % MCV 91.7 (80.0-100.0) fL MCH 30.3 (25.0-35.0) pg MCHC 33.0 (31.0-37.0) g/dL RDW 12.9 (11.5-15.5) % Plt Count 268 (150-450) k/uL MPV 10.2 Neutrophils % 46 % Lymphocytes % 43 % Monocytes % 6 % Eosinophils % 2 % Basophils % 0 % Neutrophils # 3.9 (1.3-7.7) k/uL Lymphocytes # 3.6 (1.0-4.8) k/uL Monocytes # 0.5 (0-1.0) k/uL Eosinophils # 0.2 (0-0.7) k/uL Basophils # 0.0 (0-0.2) k/uL PT 10.4 (9.0-12.0) sec INR 1.0 (<1.2) APTT 22.5 (22.0-30.0) sec Sample Site ABG pH (7.35-7.45) ABG pCO2 (35-45) mmHg ABG pO2 (83-108) mmHg ABG HCO3 (21-25) mmol/L ABG Total CO2 (19-24) mmol/L ABG O2 Saturation (94-97) % ABG Base Excess mmol/L Ivan Test FiO2 % Sodium 137 (137-145) mmol/L Potassium 4.0 (3.5-5.1) mmol/L Chloride 106 (98-107) mmol/L Carbon Dioxide 23 (22-30) mmol/L Anion Gap 8 mmol/L BUN 15 (7-17) mg/dL Creatinine 0.87 (0.52-1.04) mg/dL Est GFR (CKD-EPI)AfAm 76 (>60 ml/min/1.73 sqM) Est GFR (CKD-EPI)NonAf 66 (>60 ml/min/1.73 sqM) Glucose 137 H (74-99) mg/dL POC Glucose (mg/dL) (70-110) mg/dL POC Glu Certified Optician ID Calcium 8.9 (8.4-10.2) mg/dL Total Bilirubin 0.4 (0.2-1.3) mg/dL AST 35 (14-36) U/L ALT 13 (4-34) U/L Alkaline Phosphatase 104 (38-126) U/L Creatine Kinase (30-135) U/L Troponin I (0.000-0.034) ng/mL Total Protein 6.1 L (6.3-8.2) g/dL Albumin 3.7 (3.5-5.0) g/dL 04/06/23 04/06/23 04/06/23 Range/Units 15:17 15:17 15:31 WBC (3.8-10.6) k/uL RBC (3.80-5.40) m/uL Hgb (11.4-16.0) gm/dL Hct (34.0-46.0) % MCV (80.0-100.0) fL MCH (25.0-35.0) pg MCHC (31.0-37.0) g/dL RDW (11.5-15.5) % Plt Count (150-450) k/uL MPV Neutrophils % % Lymphocytes % % Monocytes % % Eosinophils % % Basophils % % Neutrophils # (1.3-7.7) k/uL Lymphocytes # (1.0-4.8) k/uL Monocytes # (0-1.0) k/uL Eosinophils # (0-0.7) k/uL Basophils # (0-0.2) k/uL PT (9.0-12.0) sec INR (<1.2) APTT (22.0-30.0) sec Sample Site ABG pH (7.35-7.45) ABG pCO2 (35-45) mmHg ABG pO2 (83-108) mmHg ABG HCO3 (21-25) mmol/L ABG Total CO2 (19-24) mmol/L ABG O2 Saturation (94-97) % ABG Base Excess mmol/L Ivan Test FiO2 % Sodium (137-145) mmol/L Potassium (3.5-5.1) mmol/L Chloride (98-107) mmol/L Carbon Dioxide (22-30) mmol/L Anion Gap mmol/L BUN (7-17) mg/dL Creatinine (0.52-1.04) mg/dL Est GFR (CKD-EPI)AfAm (>60 ml/min/1.73 sqM) Est GFR (CKD-EPI)NonAf (>60 ml/min/1.73 sqM) Glucose (74-99) mg/dL POC Glucose (mg/dL) 132 H (70-110) mg/dL POC Glu Certified Optician ID Destini Rios Calcium (8.4-10.2) mg/dL Total Bilirubin (0.2-1.3) mg/dL AST (14-36) U/L ALT (4-34) U/L Alkaline Phosphatase (38-126) U/L Creatine Kinase 39 (30-135) U/L Troponin I <0.012 (0.000-0.034) ng/mL Total Protein (6.3-8.2) g/dL Albumin (3.5-5.0) g/dL 12/18/22 Range/Units 16:00 WBC (3.8-10.6) k/uL RBC (3.80-5.40) m/uL Hgb (11.4-16.0) gm/dL Hct (34.0-46.0) % MCV (80.0-100.0) fL MCH (25.0-35.0) pg MCHC (31.0-37.0) g/dL RDW (11.5-15.5) % Plt Count (150-450) k/uL MPV Neutrophils % % Lymphocytes % % Monocytes % % Eosinophils % % Basophils % % Neutrophils # (1.3-7.7) k/uL Lymphocytes # (1.0-4.8) k/uL Monocytes # (0-1.0) k/uL Eosinophils # (0-0.7) k/uL Basophils # (0-0.2) k/uL PT (9.0-12.0) sec INR (<1.2) APTT (22.0-30.0) sec Sample Site lrad ABG pH 7.38 (7.35-7.45) ABG pCO2 41 (35-45) mmHg ABG pO2 375 H (83-108) mmHg ABG HCO3 24 (21-25) mmol/L ABG Total CO2 25 H (19-24) mmol/L ABG O2 Saturation 100.0 H (94-97) % ABG Base Excess -1.0 mmol/L Ivan Test Yes FiO2 100 % Sodium (137-145) mmol/L Potassium (3.5-5.1) mmol/L Chloride (98-107) mmol/L Carbon Dioxide (22-30) mmol/L Anion Gap mmol/L BUN (7-17) mg/dL Creatinine (0.52-1.04) mg/dL Est GFR (CKD-EPI)AfAm (>60 ml/min/1.73 sqM) Est GFR (CKD-EPI)NonAf (>60 ml/min/1.73 sqM) Glucose (74-99) mg/dL POC Glucose (mg/dL) (70-110) mg/dL POC Glu Certified Optician ID Calcium (8.4-10.2) mg/dL Total Bilirubin (0.2-1.3) mg/dL AST (14-36) U/L ALT (4-34) U/L Alkaline Phosphatase (38-126) U/L Creatine Kinase (30-135) U/L Troponin I (0.000-0.034) ng/mL Total Protein (6.3-8.2) g/dL Albumin (3.5-5.0) g/dL - Medical Decision Making Was pt. sent in by a medical professional or institution (, CHRISTOPH, WEB DESIGN INTERN, urgent care, hospital, or correction...) When possible be specific @ -No Did you speak to anyone other than the patient for history (EMS, parent, family, police, friend...)? What history was obtained from this source @ -EMS described the history of the patient and scene details Did you review nursing and triage notes (agree or disagree)? Why? @ -I reviewed and agree with nursing and triage notes Were old charts reviewed (outside hosp., previous admission, EMS record, old EKG, old radiological studies, urgent care reports/EKG's, correction records)? Report findings @ -No Differential Diagnosis (chest pain, altered mental status, abdominal pain women, abdominal pain men, vaginal bleeding, weakness, fever, dyspnea, syncope, headache, dizziness, GI bleed, back pain, seizure, CVA, palpatations, mental health, musculoskeletal)? @ -ischemic cva, hemorrhagic cva, brain mass, sdh, sah EKG interpreted by me (3pts min.). @ -yes X-rays interpreted by me (1pt min.). @ -yes CT interpreted by me (1pt min.). @ -yes U/S interpreted by me (1pt. min.). @ -None done What testing was considered but not performed or refused? (CT, X-rays, U/S, labs)? Why? @ -None What meds were considered but not given or refused? Why? @ -None Did you discuss the management of the patient with other professionals (professionals i.e. Dr., PA, WEB DESIGN INTERN, lab, RT, psych nurse, social insurance analyst, manufacturing production manager, teacher, chief media officer, case packer and sealer)? Give summary @ -Dr. Cooley and Dr. Espana - spoke to both as to whether mannitol could be given and to what hospital the patient should be transported to Was smoking cessation discussed for >3mins.? @ -No Was critical care preformed (if so, how long)? @ -Yes, 65 minutes Were there social determinants of health that impacted care today? How? (Homelessness, low income, unemployed, alcoholism, drug addiction, transportation, low edu. Level, literacy, decrease access to med. care, care home, rehab)? @ -No Was there de-escalation of care discussed even if they declined (Discuss DNR or withdrawal of care, Hospice)? DNR status @ -Yes. Discussed with patient and she wanted to be a full code What co-morbidities impacted this encounter? (DM, HTN, Smoking, COPD, CAD, Cancer, CVA, ARF, Chemo, Hep., AIDS, mental health diagnosis, sleep apnea, morbid obesity)? @ -None Was patient admitted / discharged? Hospital course, mention meds given and route, prescriptions, significant lab abnormalities, going to OR and other pertinent info. @ - Upon arrival patient is placed in the hallway. Neuro assessment is performed. She is able to answer questions appropriately however has sign ificant dysarthria. She has complete caridad-neglect of her left side with hemiparesis. She is protecting her airway at this time and is taken over to CT. I am able to visualize a very large intracranial bleed. We do proceed with CT angios to evaluate for aneurysm rupture. Patient is placed back in the trauma bay and I have discussed with her that she has a very large brain bleed. Patient seems capable of making her own decisions and requests to be a full code. I requests permission to talk to her son which she does agree to. I did make several calls to her son marked however I am unable to make contact. Patient is placed on the ventilator in anticipation of transfer to outside facility. I spoke with Dr. Quiñonez on several occasions requesting transfer to his facility for further care. He is able to set up transfer to [facility]. I am told before the patient can be transferred that she requires a repeat CT as there is concern for herniation. They stated the patient can be transferred after would like me to continue making contact with the patient's son. I continue to make efforts however I'm still unable to speak with him. [employer] forms are signed and patient will be transferred to [facility] with an extremely guarded prognosis Undiagnosed new problem with uncertain prognosis? @ -Yes Drug Therapy requiring intensive monitoring for toxicity (Heparin, Nitro, Insulin, Cardizem)? @ -Mannitol Were any procedures done? @ -Intubation Diagnosis/symptom? @ -acute hemiparesis, anerysm rupture, subarachnoid hemorrhage Acute, or Chronic, or Acute on Chronic? @ -acute Uncomplicated (without systemic symptoms) or Complicated (systemic symptoms)? @ -complicated Side effects of treatment? @ -No Exacerbation, Progression, or Severe Exacerbation? @ -No Poses a threat to life or bodily function? How? (Chest pain, USA, DC, pneumonia, PE, COPD, DKA, ARF, appy, cholecystitis, CVA, Diverticulitis, Homicidal, Suicidal, threat to staff... and all critical care pts) @ -Yes, severe - patient will most likely succumb to diagnosis 12/18/22 20:18 EKG demonstrates sinus bradycardia with a rate of 46. SC interval 201. QRS 93. QTC of 479. No acute ST segment elevations or depressions Past Medical History Past Medical History: Asthma, GERD/Reflux, Hypertension, Osteoarthritis (OA), Thyroid Disorder Additional Past Medical History / Comment(s): Sinus problems, hypothyroid, chronic back pain (mostly lower), spondylosis, bilateral varicose veins. History of Any Multi-Drug Resistant Organisms: None Reported Past Surgical History: Back Surgery, Orthopedic Surgery, Tonsillectomy Additional Past Surgical History / Comment(s): Back surgeries x 2, R knee arthroscopy, bilateral cataract removals with lens implants, breast benign lumpectomy (pt cannot recall laterallity), D&C. Past Anesthesia/Blood Transfusion Reactions: No Reported Reaction Past Psychological History: No Psychological Hx Reported Past Alcohol Use History: None Reported Past Drug Use History: None Reported - Past Family History Mother Additional Family Medical History / Comment(s): Mother had rheumatic fever as a child. She had a pacer placed later in life. Father Family Medical History: Myocardial Infarction (DC) Additional Family Medical History / Comment(s): Father had a DC "late in life." Father Sister(s) Family Medical History: Myocardial Infarction (DC) Course Vital Signs 12/18/22 12/18/22 12/18/22 15:03 15:20 15:27 Pulse Rate 60 64 85 Respiratory 16 18 16 Rate Blood Pressure 126/80 121/72 133/92 O2 Sat by Pulse 98 98 Oximetry Fraction of Inspired Oxygen (FIO2) 12/18/22 12/18/22 12/18/22 15:30 15:35 15:40 Pulse Rate 37 L 45 L 62 Respiratory 16 16 16 Rate Blood Pressure 174/87 171/92 172/106 O2 Sat by Pulse 98 100 100 Oximetry Fraction of 100 Inspired Oxygen (FIO2) 12/18/22 12/18/22 12/18/22 15:50 15:54 15:57 Pulse Rate 52 L 34 L 35 L Respiratory 16 16 16 Rate Blood Pressure 163/70 133/76 O2 Sat by Pulse 100 100 100 Oximetry Fraction of Inspired Oxygen (FIO2) 12/18/22 12/18/22 12/18/22 16:00 16:08 16:15 Pulse Rate 42 L 79 Respiratory 16 16 Rate Blood Pressure 141/65 186/94 O2 Sat by Pulse 100 100 Oximetry Fraction of 50 Inspired Oxygen (FIO2) 12/18/22 12/18/22 12/18/22 16:23 16:25 16:35 Pulse Rate 70 80 40 L Respiratory 16 16 16 Rate Blood Pressure 129/66 142/71 155/72 O2 Sat by Pulse 98 100 100 Oximetry Fraction of Inspired Oxygen (FIO2) 12/18/22 12/18/22 16:38 16:55 Pulse Rate 50 L 64 Respiratory 16 16 Rate Blood Pressure 138/73 134/75 O2 Sat by Pulse 99 100 Oximetry Fraction of Inspired Oxygen (FIO2) - Reevaluation(s) Reevaluation #1: Spoke with Dr. Quiñonez. Patient in CAT scan right now and appears to have a large intraparenchymal bleed 12/18/22 15:10 Reevaluation #2: Spoke with Dr. Quiñonez. Agreeable to mannitol bolus. Patient remains hypertensive after intubation and therefore she is going to be started on a Cardene drip. Awaiting call back to see if patient is to go [facility] or [facility] 12/18/22 15:44 Reevaluation #3: Spoke with Dr. Espana who would like another CT on the patient. Continue to make contact with family which I am still unavailable to speak with to discuss possible comfort care. 12/18/22 16:05 Procedures - Intubation Sedative: Etomidate Mg Given: 20 Paralytic: Rocuronium Mg Given: 50 Laryngoscope: fiber optic video scope Size: 3 ET Tube Size: 7.5 ET Tube Uncuffed: No Tube Secured Depth (cm): 24 Tube Secured Location: teeth Tube Placement Confirmation: visualized tube passing through cords, equal breath sounds bilaterally, no breath sounds over epigastrium, confirmation by capnometry Patient Tolerated Procedure: well, no complications Intubation Complications: none Critical Care Time Critical Care Time: Yes Critical Care Time: 35minutes Disposition Clinical Impression: SAH (subarachnoid hemorrhage), Cerebral aneurysm rupture Disposition: OTHER INSTITUTION NOT DEFINED Condition: Critical Is patient prescribed a controlled substance at d/c from ED?: No Referrals: None,Stated [Primary Care Provider] - 1-2 days Time of Disposition: 15:44 - Out of Hospital Transfer - Req. Specs Out of Hospital Transfer - Requested Specifics: Neurological ICU (Jaziel Duvall)
--- NOTE | 2022-12-18 15:21 | CT ---
EXAMINATION TYPE: CT brain wo con for TPA DATE OF EXAM: 12/18/2022 COMPARISON: None HISTORY: Neuro deficits. Code stroke CT DLP: 1177.[address] of the brain was performed. There is a large acute intraparenchymal hemorrhage noted right temporal parietal region measuring 5.6 x 3.2 x 5.0 cm. There is also associated subarachnoid hemorrhage with hemorrhage noted about the per imesencephalic cisterns and suprasellar cistern. Additional subarachnoid hemorrhage about the sulci o verlying the cerebral convexities. Descending transtentorial herniation is not excluded. There is mid line shift from right to left of approximately 6.4 mm. Findings may be related to ruptured aneurysm. Additional possibilities include that of the hemorrhagic neoplasm, amyloid angiopathy, hypertensive b leed and posttraumatic intracranial hemorrhage. Correlate clinically. Osseous calvarium is intact. If symptoms persist consider MRI. IMPRESSION: 1. Large right-sided intraparenchymal hemorrhage with associated subarachnoid hemorrhage. Differentia l diagnostic possibilities discussed above. 2. I cannot exclude descending transtentorial herniation. Midline shift from right to left as noted o f 6.4 mm.
[2022-12-18] MEDS ORDERED: ROCURONIUM 10 MG/ML (5 ML VIAL) IV STA (15:25)
[2022-12-18] MEDS ORDERED: ETOMIDATE 2 MG/ML 10 ML VIAL IVP STA (15:25)
[2022-12-18 15:32] LABS: Glucose,Whole Blood 132 mg/dL (70-110)
--- NOTE | 2022-12-18 15:37 | CT ---
EXAMINATION TYPE: CT angio head neck DATE OF EXAM: 12/18/2022 COMPARISON: None HISTORY: Neuro deficits, code stroke CT DLP: 671.9 mGycm CONTRAST: Performed with IV Contrast, patient injected with 65 mL of Isovue 370. Combination Contrast CTA cervical carotids and [place] CTA cervical carotids with 3-D recons truction Contrast CTA of the cervical carotids was performed 3-D reconstruction imaging obtained at a separate workstation. Right carotid system: Mild plaque is seen of the right common carotid artery. There is mild plaque a lso noted at the carotid bulb and proximal ICA. No significant diameter reduction. ECA is patent. Right vertebral artery appears unremarkable. Left carotid system: Mild plaque is seen of the left common carotid artery. There is mild plaque als o noted at the carotid bulb and proximal ICA. No significant diameter reduction. ECA is patent. Lef t vertebral artery appears unremarkable. IMPRESSION: 1. No significant diameter reduction to account for the patient's symptoms. CTA [place] with 3-D reconstruction Contrast CTA of the [place] was performed 3-D reconstruction imaging obtained at a separate workstation. There is a large aneurysm right MCA just distal to the trifurcation anteriorly. Aneurysm measures melyssa roximately 1.2 cm. There is adjacent intraparenchymal hemorrhage. The findings are compatible with ru ptured aneurysm. No additional aneurysms seen at this time. Intracranial vasculature is patent. IMPRESSION: 1. Right MCA aneurysm as described above adjacent to the site of intraparenchymal hemorrhage and suba rachnoid hemorrhage. NASCET criteria was used in interpretation of this exam?
[2022-12-18] MEDS ORDERED: niCARdipine 20 MG in SODIUM CHLORIDE 0.9% 192 ML IV ONE (15:43)
[2022-12-18] MEDS ORDERED: ONDANSETRON 4 MG/2 ML VIAL IVP STA (15:46)
[2022-12-18 15:47] LABS: Basophils % (A) 0 %; Eosinophils # (A) 0.2 k/uL (0-0.7); Eosinophils % (A) 2 %; HCT 36.3 % (34.0-46.0); Lymphocytes # (A) 3.6 k/uL (1.0-4.8); Lymphocytes % (A) 43 %; MCH 30.3 pg (25.0-35.0); MCV 91.7 fL (80.0-100.0); Mean Platelet Volume 10.2; Monocytes # (A) 0.5 k/uL (0-1.0); Monocytes % (A) 6 %; Neutrophils # (A) 3.9 k/uL (1.3-7.7); Neutrophils % (A) 46 %; Platelet Count 268 k/uL (150-450); RBC 3.96 m/uL (3.80-5.40); RDW 12.9 % (11.5-15.5); WBC 8.4 k/uL (3.8-10.6)
--- NOTE | 2022-12-18 15:47 | XR ---
EXAMINATION TYPE: XR chest 1V DATE OF EXAM: 12/18/2022 HISTORY: Shortness of breath. COMPARISON: 04/20/2018 TECHNIQUE: Single view of the chest is submitted. FINDINGS: Endotracheal tube demonstrates its tip approximately 3.1 cm from the kwaku. NG tube is seen coursing into the stomach. There is no evidence for focal infiltrate. The heart is stable. Hilar and mediastinal structures are within normal limits. Degenerative changes are seen of the dorsal spine. IMPRESSION: 1. Indwelling tubes and catheters as noted. Chronic changes seen.
[2022-12-18 15:56] LABS: Albumin 3.7 g/dL (3.5-5.0); Calcium 8.9 mg/dL (8.4-10.2); Total Bilirubin 0.4 mg/dL (0.2-1.3); Total Protein 6.1 g/dL (6.3-8.2)
[2022-12-18] MEDS ORDERED: MANNITOL IV ONE (16:00)
[2022-12-18] MEDS ORDERED: SALINE IV ONE (16:00)
[2022-12-18 16:01] LABS: Partial Thromboplastin Time 22.5 sec (22.0-30.0); Prothrombin Time 10.4 sec (9.0-12.0)
[2022-12-18 16:03] LABS: ABG HCO3 24 mmol/L (21-25); ABG PCO2 41 mmHg (35-45); ABG PH 7.38 (7.35-7.45); ABG PO2 375 mmHg (83-108); ABG TCO2 25 mmol/L (19-24); Allen Test Performed? Yes
--- NOTE | 2022-12-18 16:44 | CT ---
EXAMINATION TYPE: CT brain wo con DATE OF EXAM: 12/18/2022 HISTORY: Altered mental status. CT DLP: 1206.6 mGycm. Automated Exposure Control for Dose Reduction was Utilized. TECHNIQUE: CT scan of the head is performed without contrast. COMPARISON: CT brain earlier today. FINDINGS: Enlarging acute intracranial hemorrhage right temporal parietal region is present with more mass effect now measuring 9.0 x 6.5 cm image 29 versus 5.6 x 3.7 cm prior study. Acute subarachnoi d hemorrhage is redemonstrated. Acute intraventricular hemorrhage now identified. 4 prominent midline shift measured nearly 2.0 cm image 32. Increasing ventricular prominence. Mass effect on the brainst em. Inferior tonsillar herniation. Globes are intact and visualized sinuses are clear. IMPRESSION: Worsening acute intracranial hemorrhage as detailed above with worsening significant mass effect and midline shift.
[2022-12-18 17:02] VITALS: BP 134/75; PULSE 64
== END 2022-12-18 17:02 | disposition other institution (70) ==
LOC: EC 15:01
DX: I60.7 Nontraumatic subarachnoid hemorrhage from unspecified intracranial artery (principal); E11.36 Type 2 diabetes mellitus with diabetic cataract; I10 Essential (primary) hypertension; J45.909 Unspecified asthma, uncomplicated; E03.9 Hypothyroidism, unspecified; K21.9 Gastro-esophageal reflux disease without esophagitis; M19.90 Unspecified osteoarthritis, unspecified site; Z88.1 Allergy status to other antibiotic agents; Z79.890 Hormone replacement therapy; Z79.899 Other long term (current) drug therapy
CPT/HCPCS: 36415; 36600; 93005; 80053; 82550; 82805; 84484; 85025; 85610; 85730; 71045; 70496; 70450 ×2; 70498; 99291; 31500; 96365; 96375 ×2; J2405; J2704; Q9967